=== PATIENT | female | born 1990 | race Caucasian/White ===

== ENCOUNTER 2019-05-30 08:50 | Inpatient (IN) ==
--- NOTE | 2019-06-01 17:24 | History and Physical Report ---
DATE OF ADMISSION: 06/06/2019 PREOPERATIVE HISTORY AND PHYSICAL PREOPERATIVE DIAGNOSES: 1. Intrauterine at 40 and 3/7 weeks. 2. History of previous section, here for default section. 3. History of large for gestational age first giving to a 10 pound 10 ounce baby. HISTORY OF PRESENT ILLNESS: Payal is a 28-year-old white female 6, para 1-0-4-1 who presents to labor and delivery for default repeat section. Her first baby was delivered of a 10 pound 10 ounce large for gestational age baby for failure of descent. This has been fairly uncomplicated. She is obese but otherwise has done well. She notes good movement, no contraction symptoms. No nausea or vomiting. She is taking a vitamin and iron. ALLERGIES: CEPHALEXIN CAUSING HIVES, CIPRO - JOINT PAIN, BENADRYL - HIVES, DOXYCYCLINE - HIVES, PENICILLIN - HIVES, SULFA - HIVES, RED DYE - DIZZINESS, YELLOW DYE - HIVES. CURRENT MEDICATIONS: Iron and vitamin as noted. PAST MEDICAL HISTORY: Significant for obesity, history of ectopic . PAST SURGICAL HISTORY: Includes . PAST OBSTETRIC AND GYNECOLOGIC HISTORY: #1 in 03/2016, 5 week spontaneous miscarriage. #2 in 03/2017, 40 weeks, 10 pound 10 ounce . She pushed for 2 hours with failure to descend. #3 in 09/2017, ectopic . #4 in 02/2018, spontaneous miscarriage at 4 weeks. #5 in 06/2018, spontaneous miscarriage at 4 weeks. #6, current . SOCIAL HISTORY: The patient denies tobacco, alcohol or drugs. Lives with her spouse and son. PHYSICAL EXAMINATION: GENERAL: This is a well-developed, well-nourished, obese white female in no acute distress. VITAL SIGNS: Her blood pressure is 114/66, her weight is 263 pounds. NECK: Supple without thyromegaly or lymphadenopathy. CHEST: Clear to auscultation bilaterally. CARDIOVASCULAR: Regular rate and rhythm without murmurs, gallops or rubs. ABDOMEN: Soft, gravid and nontender. EXTREMITIES: Show some trace edema, but are otherwise benign. LABORATORY DATA: Blood type O positive, antibody negative, rubella immune, RPR nonreactive, hepatitis B negative, HIV negative. A 28-week glucose 101. AFP negative, chlamydia and gonorrhea negative. CF and SMA negative. Panorama within normal limits. MSAFP negative. GBS negative. ASSESSMENT AND PLAN: Payal is a 28-year-old white female, 6, para 1-0-4-1, who presents to labor and delivery for default repeat section. Her first was delivered of a 10 pound 10 ounce baby after failure to descend. The risks of the procedure were discussed with the patient including the risks of anesthesia, bleeding requiring transfusion, infection, poor wound healing, damage to surrounding structures including bowel, bladder, vessels, nerves and ureters with need for further surgery, hospitalization or intervention. The other risks of surgery including heart attack, blood clot, stroke and were discussed with the patient. Consent was reviewed and signed. Questions were asked and answered. Surgery is planned for 06/06.
[2019-06-06 05:45] LABS: Basophils # (auto) 0.02 K/uL (0-0.2); Basophils % (auto) 0.2 %; Eosinophils % (auto) 6.4 %; Hematocrit (blood only) 25.6 % (37-47); Hemoglobin 7.5 g/dL (12.0-16.0); Immature Granulocytes # (auto) 0.05 K/uL (0.00-0.02); Immature Granulocytes % (auto) 0.5 %; Lymphocytes # (auto) 1.37 K/uL (1.2-3.4); Lymphocytes % (auto) 14.7 %; Mean Corpuscular Hemoglobin 20.5 pg (25-34); Mean Corpuscular Volume 70.1 fL (80-100); Monocytes # (auto) 0.76 K/uL (0.11-0.59); Monocytes % (auto) 8.1 %; Neutrophils # (auto) 6.53 K/uL (1.4-6.5); Neutrophils % (auto) 70.1 %; Platelet Count 223 K/uL (130-400); RDW Coefficient of Variation 18.8 % (11.5-14.5); RDW Standard Deviation 47.7 fL (36.4-46.3); Red Blood Count 3.65 M/uL (4.2-5.4); White Blood Count 9.33 K/uL (4.8-10.8)
[2019-06-06 05:49] LABS: Appearance Urine Cloudy (Clear); Bacteria Urine Automated 1+ (Negative); Bilirubin Urine Negative (Negative); Blood Urine Negative (Negative); Color Urine Yellow; Epithelial Cell Urine Auto >30 /lpf (0-5); Glucose Urine UA Negative (Negative); Ketones Urine Negative (Negative); Leukocyte Esterase Urine Negative (Negative); Nitrite Urine Negative (Negative); Protein Urine Negative (Negative); RBC Urine Automated 0-4 /hpf (0-4); Specific Gravity Urine 1.017 (1.000-1.030); Urobilinogen Urine Negative (Negative); pH Urine 6.5 (4.5-7.5)
[2019-06-06 05:57] LABS: Mean Corpuscular Hgb Conc 29.3 g/dL (32-36)
[2019-06-06] MEDS ORDERED: CLINDAMYCIN 900 MG in DEXTROSE 5% 50 ML IV SCH (06:00)
[2019-06-06] MEDS ORDERED: CITRIC ACID/SODIUM CITRATE 15 ML UDC PO SCH (06:00)
[2019-06-06] MEDS ORDERED: LACTATED RINGER'S 1,000 ML IV SCH ×2 (06:00→09:49)
[2019-06-06 06:29] LABS: Polychromasia 1+
--- NOTE | 2019-06-06 07:11 | History & Physical Bridge Note ---
Date of Service June 06, 2019 History & Physical Bridge Note I have examined the patient, reviewed the History & Physical and in the interval since the performance of the History & Physical I have noted the following changes of clinical significance: no changes noted
[2019-06-06] MEDS ORDERED: SODIUM CHLORIDE 0.9% 250 ML IV PRN (07:21)
--- NOTE | 2019-06-06 07:33 | Anesthesiology Consultation ---
Date of Service June 06, 2019 Assessment & Plan Chart Review Chart Review: Acceptable Risk for Surgery and Patient NOT seen in Pre Admission Testing Consults Requested none ASA ASA2 Proposed Anesthesia Anesthesia Type: MAC Spinal Risk / Benefits Reviewed With: PT / POA / Parent / Guardian, Accepts Plan and Informed Consent Obtained History Surgery Operation Date: 06/06/19 07:30 Proposed Procedures p Section in LD - Molly Brenner MD, FACOG Height/Weight Height: 5 ft 8.5 in Weight: 119.567 kg Allergies Allergy/AdvReac Type Severity Reaction Status Date / Time cephalexin [From Keflex] Allergy Intermediate Hives Verified 06/06/19 05:35 diphenhydramine Allergy Intermediate Hives Verified 06/06/19 05:35 [From Benadryl] doxycycline Allergy Intermediate Hives Verified 06/06/19 05:35 Penicillins Allergy Intermediate Hives Verified 06/06/19 05:35 Sulfa (Sulfonamide Allergy Intermediate Hives Verified 06/06/19 05:35 Antibiotics) red dye Allergy Mild Dizziness Verified 06/06/19 05:35 yellow dye Allergy Hives Verified 06/06/19 05:35 ciprofloxacin [From Cipro] AdvReac Intermediate Joint Pain Verified 06/06/19 05:35 nickel AdvReac Redness of Verified 06/06/19 05:35 Skin Medications Home Medications Medication Instructions Recorded Confirmed Last Taken ferrous sulfate 325 mg PO PM 03/24/19 06/06/19 1 Day Ago ~06/05/19 vit [id number] 1 tab PO PM 03/24/19 06/06/19 1 Day Ago [ Vitamin] ~06/05/19 NPO Date Last Intake of Fluids: 06/05/19 Time Last Intake of Fluids: 22:30 Date Last Intake of Solids: 06/05/19 Time Last Intake of Solids: 22:00 Past Medical History Medical History Ectopic (Resolved) 2018 GERD (gastroesophageal reflux disease) HX History of anemia History of anesthesia reaction PATIENT REPORTS BP DROPPED VERY LOW DURING LAST > FELT LIKE SHE WAS PASSING OUT Hx of one miscarriage 2015,2018,2019 Exercise / Class Metabolic Activity II 4-5 Yardwork/Stairs/Walk up hill Past Family History Family History Mother Anxiety Anemia Depression Other Breast cancer Diabetes Dyslipidemia Gallbladder disease Heart disease Hypertension No pertinent family history Ovarian cancer Past Surgical History Surgical History History of tooth extraction S/P section 2017 Past Anesthesia History No Hx of Anesthesia Complications and No Family Hx of Anesthesia Complications History of PONV No Hx of PONV and No Hx of Motion Sickness Social History Smoking Status: Never smoker Do You Dip or Chew Tobacco: No Hx Alcohol Use: No Hx Substance Use: No substance use type: does not use Review of Systems no chest pain or sob Physical Exam Vital Signs Last Vital Signs Temp 36.3 C L 06/06/19 05:36 Pulse 96 H 06/06/19 07:17 Resp 20 06/06/19 05:36 BP 120/66 06/06/19 07:17 ENMT Mouth: no TMJ abnormality Thyromental Distance: > or= 3.5 Finger Breadths Mallampati Class: II Neck normal visual inspection Respiratory normal respiratory effort Auscultation: lungs clear to auscultation bilaterally Cardiovascular Rate/Rhythm: regular rate and regular rhythm Musculoskeletal Spine: normal cervical ROM Neurologic moves all extremities Psychiatric Orientation: alert and oriented x 3 Testing Laboratory Results 06/06/19 05:27 Urine Color Yellow 06/06/19 05:15 Urine Appearance Cloudy (Clear) A 06/06/19 05:15 Urine pH 6.5 (4.5-7.5) 06/06/19 05:15 Ur Specific [place] 1.017 (1.000-1.030) 06/06/19 05:15 Urine Protein Negative (Negative) 06/06/19 05:15 Urine Glucose (UA) Negative (Negative) 06/06/19 05:15 Urine Ketones Negative (Negative) 06/06/19 05:15 Urine Nitrite Negative (Negative) 06/06/19 05:15 Ur Leukocyte Esterase Negative (Negative) 06/06/19 05:15 Urine WBC (Auto) 1-5 /hpf (0-5) 06/06/19 05:15 Urine RBC (Auto) 0-4 /hpf (0-4) 06/06/19 05:15 U Hyaline Cast (Auto) 1-5 /lpf (0-5) 06/06/19 05:15 U Epithel Cells (Auto) >30 /lpf (0-5) H 06/06/19 05:15 Urine Bacteria (Auto) 1+ (Negative) H 06/06/19 05:15 Blood Type O Positive 06/06/19 05:27 Antibody Screen NEGATIVE 06/06/19 05:27
[2019-06-06] MEDS ORDERED: MoRPHine SULFATE PF 1 MG/ML 10 ML AMP/VIAL ONE (07:38)
[2019-06-06] MEDS ORDERED: fentaNYL citrate 100 MCG/2 ML VIAL ONE (07:39)
[2019-06-06] MEDS ORDERED: OXYTOCIN 10 UNITS/ML VIAL ONE ×2 (07:40→08:11)
[2019-06-06] MEDS ORDERED: NALBUPHINE HCL INJ 10 MG/ML AMP IV PRN (07:54)
[2019-06-06] MEDS ORDERED: NALOXONE HCL 0.08 MG in SYRINGE 1.8 ML IV PRN (07:54)
[2019-06-06] MEDS ORDERED: LACTATED RINGER'S 500 ML IV PRN (07:54)
[2019-06-06] MEDS ORDERED: MoRPHine SULFATE PF 1 MG/ML 10 ML AMP/VIAL INT SPINAL ONE (07:54)
[2019-06-06] MEDS ORDERED: NALOXONE HCL 0.4 MG/1 ML VIAL/CARP IV PRN (07:54)
[2019-06-06] MEDS ORDERED: ONDANSETRON INJ 2 MG/ML 2 ML VIAL IV PRN (07:54)
[2019-06-06] MEDS ORDERED: HYDROmorphone INJ 0.5 MG/0.5 ML SYR IV PRN (07:54)
[2019-06-06] MEDS ORDERED: NALOXONE HCL 1 MG in SODIUM CHLORIDE 0.9% 1000ML 1,000 ML IV PRN (07:54)
[2019-06-06] MEDS ORDERED: ePHEDrine sulfate 50 MG/ML AMP IV PRN (07:54)
[2019-06-06] MEDS ORDERED: SODIUM CHLORIDE 0.9% 1000ML 1,000 ML IV SCH (08:00)
[2019-06-06] MEDS ORDERED: NO NARCOTICS OR SEDATIVES SCH (08:00)
[2019-06-06] MEDS ORDERED: DC INTRASPINAL MORPHINE SCH (08:00)
[2019-06-06] MEDS ORDERED: PHENYLEPHRINE 100MCG/ML 5ML SYR ONE (08:01)
[2019-06-06] MEDS ORDERED: CARBOPROST TROMETHAMINE 250 MCG/ML AMPUL ONE (08:10)
--- NOTE | 2019-06-06 08:45 | Post Operative Brief Note ---
PG Immediate Post Op with CF Date of Surgery June 06, 2019 Pre & Post Diagnosis Operation Date: 06/06/19 07:30 Pre-Op Diagnosis: Intrauterine at 40 weeks. History of previous section. Breech. Post-Op Diagnosis: Same as above I identified the patient and participated in the time-out.: Yes Procedure Operation Date: 06/06/19 07:30 Actual Procedures p Section in LD(Bilateral) - Molly Brenner MD, FACOG Surgeon Molly Brenner MD, FACOG [facility] Dr. Morocho, Parth Sinclair, MS 2 Estimated Blood Loss 600 Findings Consistent with Post-Op Diagnosis Drains Woods Catheter (placed after spinal, draining clear urine)
[2019-06-06 09:02] LABS: Base Excess Cord Arterial Bld -1.6 mEq/L (-9-1.8); CO2 Cord Arterial Blood 56 mmHg (39.1-73.5); HCO3 Cord Arterial Blood 26 mmol/L (19.7-28.5); PO2 Cord Arterial Blood 20 mmHg (4.1-31.7); pH Cord Arterial Blood 7.29 (7.1-7.38)
[2019-06-06 09:04] LABS: Oxygen Sat Cord Arterial Blood < 60.0 % (<60)
[2019-06-06 09:09] LABS: Base Excess Cord Venous Blood -1.2 mEq/L (-7.7-1.9); Cord Venous Blood HCO3 24 mmol/L (18.4-26.8); Cord Venous Blood PCO2 41 mmHg (30.4-57.2); Cord Venous Blood PO2 36 mmHg (14.1-43.3); Cord Venous Blood pH 7.38 (7.20-7.44)
--- NOTE | 2019-06-06 09:10 | Operative Report (OR) ---
DATE OF OPERATION: 06/06/2019 PREOPERATIVE DIAGNOSES: 1. Intrauterine at 40+ weeks. 2. History of previous section. 3. Breech presentation. POSTOPERATIVE DIAGNOSES: 1. Intrauterine at 40+ weeks. 2. History of previous section. 3. Breech presentation. PROCEDURE: Repeat lower transverse section. SURGEON: Molly Brenner MD ETCHER APPRENTICE PHOTOENGRAVING: Samson Morocho MD and Parth Harmon MS ANESTHESIA: Spinal. ESTIMATED BLOOD LOSS: 600 mL. FLUIDS: 2800 mL. URINE OUTPUT: 150 mL of concentrated yellow urine drained from the bladder at the end of the procedure. INDICATIONS: Payal is a 28-year-old 2, para 1-0-0-1 with history of previous section for failure to descend for a 10 pound 10 ounce baby. She presents today for repeat section as she has not labored. FINDINGS: Viable female infant in alonzo breech presentation, sacrum on maternal right. Clear fluid. Apgars were 9 and 9 and the baby weighed 9 pounds 9 ounces. Normal uterus, tubes, and ovaries were noted bilaterally. COMPLICATIONS: None. DRAINS: Woods. DISPOSITION: Recovery room in stable condition. DESCRIPTION OF PROCEDURE: The patient was taken to the operating room where she was identified verbally and by bracelet. She was seated on the operating table where a spinal anesthetic was placed. She was then placed in dorsal supine position with a leftward tilt. A Woods catheter was placed. She was prepped and draped in normal sterile fashion. Her anesthetic was tested and found to be adequate. A time-out was held, identifying correct patient, procedure, positioning, preoperative antibiotics. There were no concerns. A Pfannenstiel skin incision was made with the knife and taken down to the underlying layer of fascia with the knife and Bovie electrocautery. Bleeding was attended to with Bovie electrocautery. The fascia was incised in the midline with the knife and taken out laterally with scissors. The superior edge of the fascial incision was grasped, elevated and the underlying layer of rectus muscle was taken off bluntly and with scissors. In a similar fashion, the inferior edge of the fascial incision was grasped, elevated and the underlying layer of rectus muscle was taken off bluntly and with scissors. The muscles were sharply in the midline using a knife and scissors. The peritoneum was entered sharply. There were no adhesions noted. The peritoneum was taken superiorly and inferiorly sharply with scissors with good visualization. The incision was stretched. The bladder blade was placed. The vesicouterine peritoneum was identified, grasped with snap, entered with scissors and taken out laterally with scissors. The bladder flap was created digitally. The bladder blade was replaced. Hysterotomy incision was scored with the knife. The uterus was entered with a snap. The incision was stretched cephalad and caudad with the cut to length operator's fingers. Prior to making the hysterotomy incision, the uterus was palpated and the baby was found to be in breech presentation with the head in the right upper quadrant. The cut to length operator's hands were placed into the uterus and the buttocks were delivered through the uterus atraumatically. Then using fundal pressure, the legs were delivered, the arms were delivered and the head was delivered. The nose and mouth were bulb suctioned. There was immediate cry. The cord was clamped and cut and the infant was handed off to waiting pediatricians for drying and attention. Cord blood and segment were obtained. The placenta was expressed. The uterus was exteriorized and cleared of all clot and debris with moistened laparotomy sponges. The hysterotomy incision was repaired in 2 layers, the first in a running locked layer, the second in an imbricating layer. A couple of [id number] sutures of 0 Vicryl were needed for hemostasis. The posterior cul-de-sac was then irrigated and cleared of all clot and debris. The hysterotomy incision was again inspected and found to be hemostatic. The uterus was reinteriorized. Hysterotomy incision was again inspected and found to be hemostatic. The rectus muscles were reapproximated with 3 interrupted sutures of 0 Vicryl. The fascia was reapproximated with 0 Vicryl in a running fashion starting at the corners meeting in the midline. The subcuticular tissue was copiously irrigated. Bleeding was attended to with Bovie electrocautery. A subcutaneous horizontal mattress sutures of 2-0 Vicryl were used to close the space and the skin was then closed with 4-0 Vicryl in subcuticular fashion. All sponge, lap and needle counts were correct x2. The patient tolerated the procedure well and was taken to recovery room in stable condition. I attest to the content of the Intraoperative Record and any orders documented therein. Any exceptions are noted below. MTDD
[2019-06-06] MEDS ORDERED: CARBOPROST TROMETHAMINE 250 MCG/ML AMPUL IM ONE (09:13)
[2019-06-06] MEDS ORDERED: OXYTOCIN 20 UNITS in LACTATED RINGER'S 1,000 ML IV SCH (09:49)
[2019-06-06] MEDS ORDERED: MAGNESIUM HYDROXIDE SUSP 30 ML UDC PO PRN (09:49)
[2019-06-06] MEDS ORDERED: BENZOCAINE 20% AER SPR 82.5 GM CAN EXT PRN (09:49)
[2019-06-06] MEDS ORDERED: SUPERCREAM 0.870% 15 GM JAR EXT PRN (09:49)
[2019-06-06] MEDS ORDERED: HYDROCORTISONE ACETATE 25 MG SUPP PR PRN (09:49)
[2019-06-06] MEDS ORDERED: DIPHTHERIA/TETANUS/PERTUSSIS 0.5 ML SYR/VIAL IM ONE (09:49)
[2019-06-06] MEDS: KETOROLAC 30 MG/ML VIAL IV PRN ×2 (09:55→16:20)
--- NOTE | 2019-06-06 11:20 | Anesthesiology Progress Note ---
Date of Service June 06, 2019 Anesthesia Post Procedure Vital Signs Vital Signs: Temp Pulse Pulse Resp BP BP Pulse Ox 06/06/19 11:15 69 99 06/06/19 11:10 80 109/64 100 06/06/19 11:05 74 99 06/06/19 11:00 82 102/51 L 100 06/06/19 10:59 97 H 92 06/06/19 10:55 79 100 06/06/19 10:50 75 108/53 L 99 06/06/19 10:45 80 100 06/06/19 10:40 76 102/55 L 100 06/06/19 10:35 73 100 06/06/19 10:30 83 101/54 L 98 06/06/19 10:26 64 100/57 L 06/06/19 10:25 78 100 06/06/19 10:20 67 100 06/06/19 10:15 68 100 06/06/19 10:10 81 107/56 L 99 06/06/19 10:09 71 20 97/50 L 99 06/06/19 10:05 75 100 06/06/19 10:00 36.4 C L 71 75 20 97/55 L 97/55 L 100 06/06/19 09:55 76 98 06/06/19 09:50 72 100 06/06/19 09:49 64 64 20 102/55 L 102/55 L 100 06/06/19 09:45 80 100 06/06/19 09:40 70 100 06/06/19 09:39 82 82 16 99/55 L 99/55 L 06/06/19 09:35 74 100 06/06/19 09:30 72 97/50 L 100 06/06/19 09:26 75 98/50 L 06/06/19 09:25 69 100 06/06/19 09:21 77 77 20 90/54 L 90/54 L 98 06/06/19 09:20 71 94/42 L 100 06/06/19 09:15 78 100 06/06/19 09:10 91 H 85 20 114/56 L 114/56 L 98 06/06/19 09:04 85 100 06/06/19 08:59 36.4 C L 81 83 20 118/58 L 118/58 L 98 06/06/19 08:54 73 98 06/06/19 08:49 84 118/57 L 98 06/06/19 07:38 96 H 94 06/06/19 07:37 93 H 100 06/06/19 07:17 36.7 C 96 H 20 120/66 06/06/19 05:37 87 124/71 06/06/19 05:36 36.3 C L 20 06/06/19 05:23 36.3 C L 18 Pain Intensity Abdomen: Pain Intensity: 1 Transfer of Care Handoff Completed per policy Notes Mental Status: alert / awake / arousable Patient Amnestic to Procedure: Yes Nausea / Vomiting: adequately controlled Pain: adequately controlled Airway Patency, RR, SpO2: stable & adequate BP & HR: stable & adequate Hydration State: stable & adequate Neuraxial Anesthesia: was administered and sensory block is resolving Anesthetic Complications: no major complications apparent and Pt Satisfied with anesthetic care
[2019-06-06] MEDS: SIMETHICONE 80 MG CHEW PO SCH ×3 (14:08→20:28)
[2019-06-07] MEDS ORDERED: KETOROLAC 30 MG/ML VIAL IV PRN (01:54)
[2019-06-07] MEDS ORDERED: DiphenhydrAMINE HCL 50 MG/ML VIAL IV PRN (01:54)
[2019-06-07] MEDS ORDERED: OXYCODONE/ACETAMINOPHEN 5mg/325mg TAB PO PRN (01:54)
[2019-06-07] MEDS ORDERED: MEPERIDINE HCL 50 MG/ML CARP IV PRN (01:54)
[2019-06-07] MEDS: IBUPROFEN 600 MG TAB PO PRN ×5 (02:07→20:55)
[2019-06-07 06:10] LABS: Basophils # (auto) 0.01 K/uL (0-0.2); Basophils % (auto) 0.1 %; Eosinophils # (auto) 0.53 K/uL (0-0.5); Eosinophils % (auto) 6.8 %; Hematocrit (blood only) 24.5 % (37-47); Hemoglobin 7.1 g/dL (12.0-16.0); Immature Granulocytes # (auto) 0.03 K/uL (0.00-0.02); Immature Granulocytes % (auto) 0.4 %; Lymphocytes # (auto) 0.96 K/uL (1.2-3.4); Lymphocytes % (auto) 12.3 %; Mean Corpuscular Hemoglobin 20.6 pg (25-34); Mean Platelet Volume 10.1 fL (7.4-10.4); Monocytes # (auto) 0.51 K/uL (0.11-0.59); Monocytes % (auto) 6.5 %; Neutrophils # (auto) 5.77 K/uL (1.4-6.5); Neutrophils % (auto) 73.9 %; Nucleated RBC # (auto) 0.04 K/uL (0-0); Nucleated RBC % (auto) 0.5 %; Platelet Count 208 K/uL (130-400); RDW Coefficient of Variation 18.8 % (11.5-14.5); RDW Standard Deviation 48.4 fL (36.4-46.3); Red Blood Count 3.45 M/uL (4.2-5.4); White Blood Count 7.81 K/uL (4.8-10.8)
--- NOTE | 2019-06-07 06:23 | Obstetrical Progress Note ---
Date of Service <Parth Topete DO - Last Filed: 06/07/19 06:23> June 07, 2019 Assessment & Plan <Parth Topete DO - Last Filed: 06/07/19 06:23> (1) : -\POD#1 -Vitals reviewed, WNL (Tmax 37.0) - GBS -, Blood Type O+ - Clinically stable. - Feels well today. Eating well, ambulating well. Anticipates to void well as akins was removed. - Pain well controlled. - Routinepost care - After discharge will have [address] Brenner Day #:: 1 Subjective <Parth Topete DO - Last Filed: 06/07/19 06:23> Ambulation: ambulating normally Voiding: no voiding problems (akins was removed 1 hr ago) Passing Gas:: Yes Diet Tolerance:: regular diet Lochia:: Moderate Feeding Type:: breast feeding Current Pain Level(1-10): 2 (improves with analgesics) Patient is a 28 POD#1. Patient states that she is doing well this morning and that her pain is well controlled. She has no complaints at this point in time. Constitutional: no fever and no chills Respiratory: no cough, no dyspnea and no wheezing Cardiovascular: no chest pain, no dyspnea, no dyspnea on exertion, no edema and no calf pain Breast: no breast pain Gastrointestinal: no abdominal pain, no nausea and no vomiting Genitourinary (female): no dysuria Neurologic: no headache(s) Physical Exam <DO Lenard Lizama Last Filed: 06/07/19 06:23> Constitutional WD/WN, vitals as above Respiratory normal respiratory effort, lungs clear to auscultation Cardiovascular Rate/Rhythm: regular rate and regular rhythm Heart Sounds: normal S1 and normal S2; no click, no gallop, no murmur and no cardiac rub Extremities: + edema (+1); no calf tenderness Gastrointestinal (Abdomen) Inspection/Auscultation: abdomen normal to inspection, normal bowel sounds and + abdominal surgical incision (Clean and Dry, No Pus noted. ) Percussion/Palpation: abdomen soft; abdomen nontender Genitourinary OB Exam Abdomen: + fundal height Fundus: + firm and + relation to umbilicus (2cm below); not tender and not boggy Results & Data <Parth Topete DO - Last Filed: 06/07/19 06:23> Vital Signs (Past 12 Hours) Vital Signs Temp Pulse Resp BP Pulse Ox 06/07/19 04:45 36.6 C 84 18 111/75 06/07/19 01:00 18 96 06/07/19 00:10 18 95 06/06/19 23:30 36.3 C L 84 18 114/72 96 06/06/19 22:25 18 95 06/06/19 21:45 20 96 06/06/19 21:09 18 98 06/06/19 20:29 20 98 06/06/19 19:17 37.0 C 92 H 20 120/75 100 <Samson Morocho MD - Last Filed: 06/07/19 08:26> Co-Signing Physician Notes Patient seen and evaluated and agree with the above findings and plan. Routine care. Resident Activity Tracking <DO Lenard Lizama Last Filed: 06/07/19 06:23> Resident Involvement: Resident Care Provided Care Provided: OB Delivery
[2019-06-07 06:39] LABS: Giant Platelets 1+; Ovalocytes 1+; Polychromasia 1+
[2019-06-07] MEDS: PRENATAL VITAMIN 1 TAB PO SCH (08:49)
[2019-06-07] MEDS: SIMETHICONE 80 MG CHEW PO SCH ×4 (08:50→20:52)
[2019-06-07] MEDS ORDERED: FERROUS SULFATE 325 MG TAB PO SCH (09:00)
--- NOTE | 2019-06-07 09:03 | Anesthesiology Progress Note ---
Date of Service June 07, 2019 Anesthesia Post Procedure Vital Signs Vital Signs: Temp Pulse Pulse Resp BP BP Pulse Ox 06/07/19 04:45 36.6 C 84 18 111/75 06/07/19 01:00 18 96 06/07/19 00:10 18 95 06/06/19 23:30 36.3 C L 84 18 114/72 96 06/06/19 22:25 18 95 06/06/19 21:45 20 96 06/06/19 21:09 18 98 06/06/19 20:29 20 98 06/06/19 19:17 37.0 C 92 H 20 120/75 100 06/06/19 18:11 20 99 06/06/19 17:19 20 98 06/06/19 16:20 20 100 06/06/19 15:23 36.6 C 92 H 20 108/71 99 06/06/19 15:00 20 99 06/06/19 14:00 18 99 06/06/19 13:00 20 99 06/06/19 11:40 36.6 C 72 18 113/70 99 06/06/19 11:20 70 71 20 108/57 L 108/57 L 100 06/06/19 11:15 69 99 06/06/19 11:10 80 109/64 100 06/06/19 11:05 74 99 06/06/19 11:00 80 20 102/51 L 100 06/06/19 10:59 97 H 92 06/06/19 10:55 79 100 06/06/19 10:50 75 108/53 L 99 06/06/19 10:45 80 100 06/06/19 10:40 76 102/55 L 100 06/06/19 10:35 73 100 06/06/19 10:30 83 101/54 L 98 06/06/19 10:29 54 L 20 101/54 L 06/06/19 10:26 64 100/57 L 06/06/19 10:25 78 100 06/06/19 10:20 67 100 06/06/19 10:15 68 100 06/06/19 10:10 81 107/56 L 99 06/06/19 10:09 71 20 97/50 L 99 06/06/19 10:05 75 100 06/06/19 10:00 36.4 C L 71 75 20 97/55 L 97/55 L 100 02/17/20 09:55 76 98 06/06/19 09:50 72 100 06/06/19 09:49 64 64 20 102/55 L 102/55 L 100 06/06/19 09:45 80 100 06/06/19 09:40 70 100 06/06/19 09:39 82 82 16 99/55 L 99/55 L 06/06/19 09:35 74 100 06/06/19 09:30 72 97/50 L 100 06/06/19 09:26 75 98/50 L 06/06/19 09:25 69 100 06/06/19 09:21 77 77 20 90/54 L 90/54 L 98 06/06/19 09:20 71 94/42 L 100 06/06/19 09:15 78 100 06/06/19 09:10 91 H 85 20 114/56 L 114/56 L 98 06/06/19 09:04 85 100 Pain Intensity Abdomen: Pain Intensity: 2 Transfer of Care Handoff Completed per policy Notes Mental Status: alert / awake / arousable Patient Amnestic to Procedure: Yes Nausea / Vomiting: adequately controlled Pain: adequately controlled Airway Patency, RR, SpO2: stable & adequate BP & HR: stable & adequate Hydration State: stable & adequate Anesthetic Complications: no major complications apparent and Pt Satisfied with anesthetic care
[2019-06-08] MEDS: IBUPROFEN 600 MG TAB PO PRN ×4 (00:52→17:46)
[2019-06-08 07:38] LABS: Hematocrit (blood only) 22.8 % (37-47); Hemoglobin 6.6 g/dL (12.0-16.0)
--- NOTE | 2019-06-08 07:50 | Obstetrical Progress Note ---
Date of Service June 08, 2019 Assessment & Plan (1) Encounter for care and examination after delivery: satisfactory recovery from repeat C/S Hgb this morning is 6.6 but patient asymptomatic will increase iron to bid for the next 6 weeks Subjective Ambulation: ambulating normally Voiding: no voiding problems Passing Gas:: Yes Diet Tolerance:: regular diet Feeding Type:: breast feeding Current Pain Level(1-10): 2 (no lightheadedness or dizziness when ambulating) Review of Systems All systems reviewed & are unremarkable except as noted in HPI & below Physical Exam Constitutional WD/WN, vitals as above Psychiatric A+Ox3, euthymic affect Genitourinary OB Exam Abdomen: + fundal height Fundus: + firm and + relation to umbilicus (2 below U) Results & Data Vital Signs (Past 12 Hours) Vital Signs Temp Pulse Resp BP Pulse Ox 06/08/19 00:00 97.9 F 90 16 121/72 97 06/07/19 20:00 97.7 F 89 18 124/81 98
[2019-06-08] MEDS: PRENATAL VITAMIN 1 TAB PO SCH (08:44)
[2019-06-08] MEDS: SIMETHICONE 80 MG CHEW PO SCH ×4 (08:44→20:08)
[2019-06-08] MEDS: FERROUS SULFATE 325 MG TAB PO SCH ×2 (08:44→20:08)
[2019-06-08] MEDS: ACETAMINOPHEN 325 MG TAB PO PRN ×2 (08:45→17:46)
[2019-06-08 20:34] VITALS: BP 128/81; PULSE 103; TEMP 97.7; O2SAT 98
--- NOTE | 2019-06-10 18:32 | Discharge Summary (DS) ---
ADMIT DIAGNOSES: 1. Intrauterine at 40 and 3/7 weeks. 2. History of previous section, here for default section. 3. History of large for gestational age first giving to a 10 pound 10 ounce baby. 4. Anemia. DISCHARGE DIAGNOSES: 1. Intrauterine at 40 and 3/7 weeks. 2. History of previous section, here for default section. 3. History of large for gestational age first giving to a 10 pound 10 ounce baby. 4. Breech presentation. 5. Anemia. PROCEDURE: Repeat lower transverse section. HISTORY OF PRESENT ILLNESS: Payal is a 28-year-old white female 6, para 1-0-4-1, who presents to labor and delivery for default section. Her first baby was delivered of a 10 pound 10 ounce baby for failure to descent. This has been fairly uncomplicated. She is obese but otherwise has done well. She notes good movement, no contractions, no nausea or vomiting. She is taking vitamin and iron. For the rest of the patient's detailed history and physical, please see her dictated history and physical. ASSESSMENT: Payal is a 28-year-old white female 6, para 1-0-4-1 who presents to labor and delivery for default section. HOSPITAL COURSE: The patient was admitted and underwent a repeat lower transverse section. At the time of section, she was found to have a breech presentation. Apgars were 9 and 9. Baby's weight was 9 pounds 9 ounces. On admission, the patient's hemoglobin and hematocrit were 7.5 and 25.6. She did drop to a musa of 6.6 and 22.8. However, she was not symptomatic from this and did not require a transfusion. The patient's postoperative course was uncomplicated. She tolerated a regular diet, ambulated without difficulty, voided after the removal of her Woods catheter, had pain well controlled on oral pain medications. She was discharged home on day 2 and will return in 6 weeks for routine evaluation and visit.
== END 2019-06-08 21:25 | disposition home or self-care (01) | DRG 788 ==
LOC: 4S1 06-06 05:13 → EDSTATUS 06-06 07:30 → 4S2 06-06 11:43
DX: Z37.0 Single live birth; O99.02 Anemia complicating childbirth; Z88.1 Allergy status to other antibiotic agents; D64.9 Anemia, unspecified; Z88.2 Allergy status to sulfonamides; Z88.8 Allergy status to other drugs, medicaments and biological substances; O34.211 Maternal care for low transverse scar from previous cesarean delivery; O99.214 Obesity complicating childbirth; O48.0 Post-term pregnancy; Z3A.40 40 weeks gestation of pregnancy; Z91.048 Other nonmedicinal substance allergy status; E66.9 Obesity, unspecified; Z88.0 Allergy status to penicillin; N85.8 Other specified noninflammatory disorders of uterus; O32.1XX0 Maternal care for breech presentation, not applicable or unspecified; Z91.02 Food additives allergy status